=== PATIENT | male | born 1955 | race Caucasian/White ===

== ENCOUNTER → 2017-10-06 11:46 | Outpatient (CLI) | payer OTHER, BC, SELFPAY ==
--- NOTE | 2017-10-06 11:50 | NM_ITS ---
History and Indications: Hypertension, hyperlipidemia, chest pain, shortness of breath and palpitations Procedure: Patient exercised on Vijay protocol 7 minutes and 7 seconds, resting heart rate was 58 bpm resting blood pressure 161/100 ,With exercise maximum heart rate achieved was 1 48 bpm which is equal to 93% of the maximum predicted heart rate and a blood pressure was 234/110, the test was started due to shortness of breath patient denied any complained of chest pain. Patient has good exercise capacity achieved 10.1mets of workload on treadmill, the blood pressure response to exercise was hypertensive. Electrocardiogram: Resting electrocardiogram shows sinus rhythm, with exercise there is less than 1.[address] segment depression noted from the baseline EKG. The EKG portion of the exercise Myoview is negative for ischemia. Cardiac stress and resting SPECT images: Cardiac stress and resting SPECT images were obtained using technetium 99 Myoview 29.3 mCi at stress and 10.8 mCi at rest, gated SPECT further analysis of segmental wall motion and calculation of the ejection fraction also done. Cardiac stress and resting SPECT images show uniform myocardial activity without any segmental perfusion abnormality, computer derived ejection fraction is 64% with no obvious regional wall motion abnormality, right ventricle is normal size and contractility. Conclusion: 1. The EKG portion of the exercise Myoview is negative for ischemia, patient has good exercise capacity achieved 10.1mets of workload on treadmill, the blood pressure response to exercise was hypertensive. There was no exercise-induced chest discomfort. 2. No obvious scintigraphic evidence of reversible ischemia seen, computer derived ejection fraction is 64% with no obvious regional wall motion abnormality, right ventricle is normal size and contractility.
--- NOTE | 2017-10-06 12:46 | HMH.ITSHM ---
METOPROLOL ASPIRIN LOSARTAN LANSOPRAZOLE MELOXICAM BREO
== END ==
PROVIDERS: Family Provider Family Medicine; PCP Family Medicine; Visit Provider Family Medicine
DX: R07.89 Other chest pain (principal)
CPT/HCPCS: 78452; 93017; A9502

== ENCOUNTER → 2019-01-11 17:04 | Outpatient (CLI) | payer BC, SELFPAY | PROVIDERS: PCP Family Medicine; Visit Provider Family Medicine | DX: R07.89 Other chest pain (principal) | CPT/HCPCS: 93005 ==

== ENCOUNTER → 2019-01-18 11:49 | Outpatient (CLI) | payer BC, SELFPAY | PROVIDERS: PCP Family Medicine; Visit Provider Family Medicine | DX: R00.2 Palpitations (principal) | CPT/HCPCS: 93225; 93226 ==

== ENCOUNTER → 2019-01-27 07:33 | Outpatient (CLI) | payer BC, SELFPAY ==
--- NOTE | 2019-01-27 | CA_ITS ---
APPROVED REPORT Exam: Pharmacologic Technologist: rony cooper, Ht: 5 ft 6 in Wt: 190 lbs BSA: 1.96 m2 HR: 57 bpm BP: 172/92 mmHg Indications: SOB, PALPATATIONS, chest pain Medical History Medical History: HTN Medications: Metoprolol,,,,, Losartan,,,,, Lansoprasole,,,,, MeLOICAM,,,,, Allergies: oxytetracycline; Teramycin and bee stings Cardiac Risk Factors: HTN Stress Test Details Test: LEXISCAN HR Resting HR: 56 bpm Max Heart Rate (APMHR): 157 bpm Max HR Achieved: 99 bpm Target HR (85% APMHR): 133 bpm % of APMHR: 63 Recovery HR: 79 bpm BP Resting BP: 172/92 mmHg Max BP: 195/73 mmHg Recovery BP: 168.0/90.0 mmHg ECG Clinical Exercise duration: 04:02 min Highest Stage Achieved: Exercise capacity: 1.0 METs Stress ECG Conclusion No chest pain; no shortness of breath: Nausea that resolved in recovery. Occasional PVC and PAC - atrial couplets with 5 beat run of AT. Less than 1.[address] depression. Images to follow. Electronically signed by : Joel Atkinson, 02/08/2019 11:44:23
--- NOTE | 2019-01-27 07:35 | CA_ITS ---
APPROVED REPORT EXAM: Comprehensive 2D, Doppler, and color-flow Echocardiogram Taxonomy Teacher: Nuzhat Gonzalez RVT Ht: 5 ft 6 in Wt: 190lbs BSA: 1.96 BP: 158/92 mmHg Indications: Chest Pain, Murmur, Palpitations, Dyspnea, Hypertension/HDD Left Ventricle Left atrium is mildly enlarged, left ventricle is normal size, left ventricular wall thickness is upper limit of the normal, there is preserved left ventricular systolic function, visually estimated ejection fraction 55% with no regional wall motion abnormality. Diastolic parameters are within normal range. Right Ventricle Right atrium and right ventricular normal size and contractility. Aortic Valve Aortic valve is minimally thickened and fibrosed. There is no aortic stenosis aortic insufficiency Mitral Valve Mitral valve is grossly normal. There is mild mitral regurgitation. Tricuspid Valve Tricuspid valve is grossly normal, there is mild tricuspid regurgitation, tricuspid regurgitation jet velocity is inadequate for calculation of the right ventricular systolic pressure. Pulmonic Valve Grossly normal Great Vessels Aortic root is normal size Pericardium No significant pericardial effusion noted. 2D Dimensions IVSd 1.10 cm M: 0.6-1.2 LVEF (Visual) 61.80 % PWd 1.10 cm M: 0.6 - 1.2 LVDd 3.40 cm M: 4.2 - 5.9 LVDs 2.30 cm M: 2.5 - 4.0 LVOT 1.80 cm (M/F) 1.5-2.5 M-Mode Dimensions LA Diam 4.10 cm (1.9-4.0) LVDd 6.00 cm (3.5-5.7) Ao Diam 2.40 cm (2.0-3.7) LVDs 3.50 cm (3.5-5.7) AV Cusp 1.60 cm (1.5-2.6) IVSd 0.90 cm (0.6-1.1) PWd 0.90 cm (0.6-1.1) EF (Teich) 71.70% FS 41.70% EDV (Teich) 180.00 mL ESV (Teich) 50.90 mL LV Diastology E/A Ratio 1.5 MED E' 8.97 (< 7 cm/sec) E'/MED E' Ratio 8.60 (>14) LAT E' 7.60 (<10 cm/sec) E/LAT E' Ratio 10.20 (>14) Aortic Valve AoV Peak César. 98.70 (50-130 cm/s) AO Peak GR. 4.00 mmHg Mitral Valve MV E Max César. 77.50 (40-130 cm/s) MV A Velocity 51.80 (40-130 cm/s) E/A Ratio 1.50 Pulmonary Valve GA End VMAX 29.90 cm/s PA Accel Time 99.00 (>120 msec) Tricuspid Valve TR P. Velocity 220.00 cm/s Conclusion Normal left ventricular size, preserved left ventricular systolic function, visually estimated ejection fraction 55% with no regional wall motion abnormality, diastolic parameters are within normal range. Mild mitral and tricuspid regurgitation No significant pericardial effusion noted. Electronically signed by : Kwame Ballesteros, 01/27/2019 09:26:21
--- NOTE | 2019-01-27 07:35 | NM_ITS ---
APPROVED REPORT Marine Service Manager: Lexiscan Myoview study: Indication for the test: Shortness of breath, palpitations, fatigue and hypertension Procedure: Patient received a 0.4 mg of intravenous Lexiscan, resting heart rate was 57 bpm resting blood pressure 172/92, with Lexiscan maximum heart rate achieved was 82 bpm which is less than 85% of the maximum corrected heart rate in the blood pressure was 161/86. With Lexiscan patient complained of nausea. Electrocardiogram: Resting electro cardiogram showed sinus rhythm, with Lexiscan there is less than 1.[address] segment depression noted from the baseline EKG, occasional premature atrial complexes seen, the EKG portion of the Lexiscan Myoview is nondiagnostic. Cardiac stress and resting SPECT images: Cardiac stress and resting SPECT images were obtained using technetium 99 Myoview 28.0 mCi at stress and 9.8 mCi at rest. Gated SPECT with analysis of segmental wall motion and calculation of the ejection fraction also done. Cardiac stress and resting SPECT images show uniform myocardial activity without segmental perfusion abnormality, computer derived ejection fraction is over 65% with no regional wall motion abnormality, right ventricle is normal size and contractility. Conclusions: 1. The EKG portion of the Lexiscan Myoview is nondiagnostic. 2. No scintigraphic evidence of reversible ischemia seen, computer derived ejection fraction is 65% with no regional wall motion abnormality, right ventricle is normal size and contractility. 3. Normal Lexiscan Myoview study. Conclusion Electronically signed by : Kwame Ballesteros, 01/27/2019 14:55:41
--- NOTE | 2019-01-27 11:17 | HMH.ITSHM ---
Current Home Medications as stated by this patient Jesus Randall or [facility] representatives. []losartan metoprolol meloxicam lansoprazole
== END ==
PROVIDERS: PCP Family Medicine; Visit Provider Internal Medicine
DX: R00.2 Palpitations (principal); R06.09 Other forms of dyspnea; R42 Dizziness and giddiness; I10 Essential (primary) hypertension; I49.1 Atrial premature depolarization
CPT/HCPCS: 78452; 93017; 93306; A9502; J2785

== ENCOUNTER → 2019-07-19 16:27 | Outpatient (CLI) | payer BC, SELFPAY ==
--- NOTE | 2019-07-19 16:41 | ECG_ITS ---
APPROVED REPORT Exam: Resting ECG HR:58 bpm ECG Measurements Heart Rate 58 AXES CA 146 P 3 QRSd 84 QRS -4 QT 408 T 1 QTc 400 <Conclusion> Sinus bradycardia with premature atrial complexes with aberrant conduction Otherwise normal ECG Electronically signed by : Kamari Anne, 07/20/2019 15:29:41
== END ==
PROVIDERS: PCP Family Medicine; Visit Provider Family Medicine
DX: I49.9 Cardiac arrhythmia, unspecified (principal)
CPT/HCPCS: 93005

== ENCOUNTER → 2019-08-11 14:58 | Outpatient (CLI) | payer SELFPAY ==
--- NOTE | 2019-08-11 14:59 | CT_ITS ---
PROCEDURE: CT HEART W CALCIUM SCORE CLINICAL HISTORY: chest pain COMPARISON: No exams were available for comparison TECHNIQUE: Axial images obtained with sagittal and coronal reformats. All CT scans at the facility use one or more dose reduction, viz: automated exposure control, ma/kV adjustment per patient size (including targeted exams where dose is matched to indication, i.e. head), or iterative reconstruction technique. FINDINGS: Coronary artery calcium score is 399 indicating moderate plaque burden with high cardiovascular disease risk IMPRESSION: Moderate plaque burden with high cardiovascular disease risk Dictated by: Dennis Murray MD 08/11/2019 16:43 Electronically signed by Dennis Murray MD in [place] 08/11/2019 16:43
== END ==
PROVIDERS: PCP Family Medicine; Visit Provider Internal Medicine Cardiovascular Disease
DX: Z13.6 Encounter for screening for cardiovascular disorders (principal); I10 Essential (primary) hypertension; I49.1 Atrial premature depolarization; R00.2 Palpitations; R06.09 Other forms of dyspnea; R07.9 Chest pain, unspecified; R42 Dizziness and giddiness
CPT/HCPCS: 75571

== ENCOUNTER → 2019-08-25 13:24 | Outpatient (CLI) | payer BC, SELFPAY | PROVIDERS: PCP Family Medicine; Visit Provider Internal Medicine Cardiovascular Disease | DX: G47.33 Obstructive sleep apnea (adult) (pediatric) (principal); R06.83 Snoring; R40.0 Somnolence | CPT/HCPCS: G0399 ==

== ENCOUNTER 2020-10-18 08:47 | Day surgery (SDC) | payer BC, SELFPAY ==
[2020-10-18] VITALS (12 sets, daily range): BP systolic 104–151; BP diastolic 64–103; PULSE 52–63; RESP 13–16; TEMP 36.8; O2SAT 95–98; BMI 30.9
--- NOTE | 2020-10-18 | IR_ITS ---
APPROVED REPORT Patient Location: Outpatient Wafer Fabrication Operator: LESLIE Back RT (R) PROCEDURES Left heart catheterization Left ventriculogram Selective coronary angiogram INDICATION Calcium score 399, Angina pectoris, Abnormal stress test Informed consent was obtained prior to the procedure. COMPLICATIONS NONE Estimated Blood Loss: LESS THAN 10 ML TECHNIQUE One percent lidocaine used to anesthetize the right anterior aspect of the wrist. The right radial artery was accessed via the Seldinger technique. A 6 Bengali sheath was placed in the right radial artery. 2.5 mg of verapamil, 800 mcg of nitroglycerin, 1mg Lidocaine and 5000 U Heparin were given through the arterial sheath. The trap catheter and a 6 Bengali JL 3 guide catheter were also used to perform left heart catheterization, left ventriculogram and selective coronary angiogram. At the end of the procedure the sheath was removed good hemostasis was achieved using Traclet band, patient was transferred to the postop holding area in stable condition. ANGIOGRAPHIC RESULTS The left main artery Has mild 10% stenosis The left anterior descending artery Has an ostial and proximal mild vascular ectatic area with no overt stenosis however the mid LAD has diffuse 30% calcified stenoses. The LAD is a large-caliber vessel and wraps the apex The circumflex artery Has a large caliber large ramus intermedius which originates off the left main artery which has mild vascular ectasia in the proximal segment and a mid vessel calcified 30% stenosis. The circumflex artery itself is moderate in size and has mild 20% calcified diffuse disease The right coronary artery Is a large-caliber vessel with an ostial 20% stenoses with proximal mid vessel and distal mild to moderate diffuse vascular ectasia with no overt stenosis greater than 10 to 20% The DELANEY ventriculogram reveals Normal 65% The left ventricular end-diastolic pressure 20 mmHg IMPRESSION Coronary artery disease as described above most notable for mild to moderate vascular ectasia producing a mild degree of endothelial dysfunction Diffuse mild calcification with mild coronary artery disease being present Normal ejection fraction Mildly elevated LVEDP PLAN 1. Continue medical management 2. Standard risk factor modification 3. Treatment of underlying endothelial dysfunction which is likely the etiology for patient's angina Electronically signed by : Joel Atkinson, 10/18/2020 11:27:11
[2020-10-18 09:25] LABS: Basophils % 0.4 % (0.1-2.0); Eosinophils # 0.1 K/mm3 (0.0-0.4); Eosinophils % 2.6 % (0.1-12.0); Hematocrit 41.3 % (42.0-52.0); Hemoglobin 13.8 g/dL (14.1-18.0); Lymphocytes # 1.4 K/mm3 (0.7-4.5); Mean Corpuscular HGB Conc 33.5 g/dL (31.8-35.4); Mean Corpuscular Volume 86.7 fl (80-94); Mean Platelet Volume 8.9 fl (7.4-10.4); Monocytes # 0.3 K/mm3 (0.1-1.0); Neutrophils # 3.6 K/mm3 (1.8-7.8); Neutrophils % 65.9 % (37.0-80.0); Platelet Count 128 K/mm3 (142-424); Red Blood Count 4.76 M/mm3 (4.60-6.20); Red Cell Distribution Width 14.2 % (11.5-17.5); White Blood Count 5.4 K/mm3 (4.8-10.8)
[2020-10-18 09:32] LABS: Chloride 109 mmol/L (98-107); Potassium 4.4 mmoL/L (3.5-5.1); Sodium 139 mmol/L (136-145)
[2020-10-18 09:35] LABS: Anion Gap 11.4 mEq/L (5-15); Blood Urea Nitrogen 15 mg/dl (9-20); Carbon Dioxide 23 mmol/L (22.0-30.0); Creatinine Clearance Estimated 84 mL/min (50-200); Estimated Glomerular Filt Rate 67 ml/min (>60); GFR (African American) 82 ML/MIN (>60)
[2020-10-18 09:36] LABS: Calcium 9.1 mg/dl (8.4-10.2); Glucose 111 mg/dl (74-100)
[2020-10-18 09:55] LABS: Coronavirus 19 IgG Antibody Negative (Negative); Coronavirus 19 IgM Antibody Negative (Negative)
== END 2020-10-18 14:08 | disposition home or self-care (01) ==
LOC: CATHLAB 08:49
PROVIDERS: PCP Family Medicine; Visit Provider Internal Medicine
DX: I25.118 Atherosclerotic heart disease of native coronary artery with other forms of angina pectoris (principal); I10 Essential (primary) hypertension; Z88.1 Allergy status to other antibiotic agents; Z79.899 Other long term (current) drug therapy
CPT/HCPCS: 80048; 85025; 86328; 93458; 99152; C1725; C1769; J1644; Q9967

== ENCOUNTER → 2020-11-13 14:48 | Outpatient (CLI) | payer MEDICARE, BC, SELFPAY ==
[2020-11-13 16:29] LABS: Anion Gap 11.5 mEq/L (5-15); Blood Urea Nitrogen 24 mg/dl (9-20); Calcium 8.9 mg/dl (8.4-10.2); Carbon Dioxide 22 mmol/L (22.0-30.0); Chloride 108 mmol/L (98-107); Estimated Glomerular Filt Rate 61 ml/min (>60); GFR (African American) 74 ML/MIN (>60); Glucose 126 mg/dl (74-100); Potassium 4.5 mmoL/L (3.5-5.1); Sodium 137 mmol/L (136-145)
== END ==
PROVIDERS: Visit Provider Internal Medicine Cardiovascular Disease
DX: I25.10 Atherosclerotic heart disease of native coronary artery without angina pectoris (principal); R06.00 Dyspnea, unspecified; I10 Essential (primary) hypertension; I49.1 Atrial premature depolarization; G47.33 Obstructive sleep apnea (adult) (pediatric); R06.83 Snoring; R40.0 Somnolence
CPT/HCPCS: 36415; 80048

== ENCOUNTER → 2021-03-10 11:12 | Outpatient (CLI) | payer MEDICARE, BC, SELFPAY | PROVIDERS: Visit Provider Surgery | DX: Z20.822 Contact with and (suspected) exposure to COVID-19 (principal); U07.1 COVID-19 | CPT/HCPCS: C9803; U0003; U0005 ==

== ENCOUNTER → 2022-11-13 14:10 | Outpatient (CLI) | payer MEDICARE, SELFPAY ==
--- NOTE | 2022-11-13 14:20 | XR_ITS ---
FINAL REPORT TECHNIQUE: Three views left elbow CLINICAL HISTORY: FELL OFF OF LADDER, LANDED ON LEFT HAND, PAIN & SWELLING IN LEFT HAND/WRIST/ELBOW COMPARISON: None FINDINGS: Three views of the left elbow reveal a joint effusion and a mildly displaced radial head fracture. The fracture appears to extend into the intra-articular surface. No significant soft tissue abnormality is noted. IMPRESSION: Mildly displaced radial head fracture, intra-articular, with an associated joint effusion. Reviewed, Interpreted and Dictated by Randy Sanchez MD Transcribed by Deedee Pendleton Authenticated and [facility]
--- NOTE | 2022-11-13 14:21 | XR_ITS ---
FINAL REPORT CLINICAL HISTORY: FELL OFF OF LADDER, LANDED ON LEFT HAND, PAIN & SWELLING IN LEFT HAND/WRIST/ELBOW COMPARISON: None FINDINGS: LEFT WRIST Three views of the left wrist reveal dorsal fracture fragments which originate from the region of the dorsal aspect of the triquetrum, probably avulsion fractures. Associated soft tissue swelling is present.. The visualized joint spaces are normally aligned. IMPRESSION: Avulsion fracture dorsal aspect of the triquetrum with associated soft tissue swelling. Reviewed, Interpreted and Dictated by Randy Sanchez MD Transcribed by Deedee Pendleton Authenticated and [facility]
== END ==
PROVIDERS: PCP Family Medicine; Visit Provider Family Medicine
DX: M25.522 Pain in left elbow (principal); S59.902A Unspecified injury of left elbow, initial encounter
CPT/HCPCS: 73080; 73110

== ENCOUNTER → 2022-12-29 10:25 | Outpatient (CLI) | payer MEDICARE, SELFPAY ==
--- NOTE | 2022-12-29 10:34 | XR_ITS ---
FINAL REPORT CLINICAL HISTORY: Lt elbow pain COMPARISON: November 13, 2022 FINDINGS: LEFT ELBOW 3 views were obtained. A radial head fracture is again seen and slightly depressed. There continues to be a joint effusion. No new bony abnormality is identified. IMPRESSION: Redemonstration of radial head fracture and joint effusion. Reviewed, Interpreted and Dictated by Angelita Cagle MD Transcribed by Michael Pittman Authenticated and [facility]
== END ==
PROVIDERS: PCP Family Medicine; Visit Provider Orthopaedic Surgery
DX: S52.132A Displaced fracture of neck of left radius, initial encounter for closed fracture (principal)
CPT/HCPCS: 73080

== ENCOUNTER → 2023-01-01 11:48 | Outpatient (CLI) | payer MEDICARE, SELFPAY ==
--- NOTE | 2023-01-01 | CA_ITS ---
APPROVED REPORT Exam: Exercise Treadmill Technologist: Melonie Butler, Ht: 5 ft 6 in Wt: 190 lbs BSA: 1.96 m2 HR: 57 bpm BP: 146/93 mmHg Rhythm: SINUS NEMESIO, PACS, CANNOT R/O OLD INFERIOR MO Indications: CP, SOA Medical History Medical History: HTN, Hyperlipidemia Medications: Asa,,,,, Losartan,,,,, Atorvastatin,,,,, HCTZ,,,,, Carvedilol,,,,, Citalopram,,,,, Lansoprazole,,,,, OSTEO Bi Flex,,,,, Allergies: OXYTETRACYCLINE, TERAMYCIN, BEE STINGS Cardiac Risk Factors: HTN, Hyperlipidemia Stress Test Details Test: Vijay HR Resting HR: 61 bpm Max Heart Rate (APMHR): 153 bpm Max HR Achieved: 144 bpm Target HR (85% APMHR): 130 bpm % of APMHR: 94 Recovery HR: 85 bpm HR response to stress: Normal HR response to stress BP Resting BP: 146.0/93 mmHg Max BP: 206/104 mmHg Recovery BP: 146.0/91.0 mmHg BP response to stress: Abnormal hypertensive response to stress. ECG Resting ECG: SINUS BRADYCARDIA, PACS, CANNOT R/O OLD INFERIOR MO Stress ECG: NO CHANGE Arrhythmia: PACs, PVCs Recovery ECG: NO CHANGE Recovery Arrhythmia: PACs, PVCs Clinical Exercise duration: 07:16 min Highest Stage Achieved: Exercise capacity: 10.1 METs Overall Exercise Capacity for Age: Average Stress ECG Conclusion PT WALKED 7:16 ON VIJAY PROTOCOL, ACHIEVING A TOTAL OF 10.1 METS. SHE HAS AN AVERAGE EXERCISE CAPACITY COMPARED TO AGE AND SEX MATCHED PEERS. SHE HAS A NORMAL HR, BUT EXAGGERATED BP, RESPONSE TO EXERCISE. MAX HR: 142 % OF PM: 93% MAX BP: 206/104 METS: 10.1 TEST STOPPED DUE TO: SOA NO CP OCC PVC OCC PAC NORMAL ST RESPONSE TO EXERCISE CONCLUSION AVERAGE EXERCISE CAPACITY EXAGGERATED BP RESPONSE TO EXERCISE NO EVIDENCE OF ISCHEMIA ON ECG STRESS TEST MYOVIEW IMAGES REPORTED SEPRARETELY Test Summary REST . . . . . . . Standing REST 05:48 0.0 0.0 61 . 146/ 93 . . Stage 1 01:00 10.0 1.7 85 . . . . Stage 1 02:00 10.0 1.7 91 . . . . Stage 1 03:00 10.0 1.7 93 . 148/ 90 . . Stage 2 01:00 12.0 2.5 106 . . . . Stage 2 02:00 12.0 2.5 115 . . . . Stage 2 03:00 12.0 2.5 123 . 190/ 92 . . Stage 3 01:00 14.0 3.4 136 . . . . Stage 3 01:16 14.0 3.4 140 . . . Stop exercise at 07:16 RECOVERY 01:00 0.0 0.0 122 . . . . RECOVERY 02:00 0.0 0.0 99 . 206/104 . . RECOVERY 03:00 0.0 0.0 91 . 188/ 93 . . RECOVERY 04:00 0.0 0.0 85 . 188/ 93 . . RECOVERY 05:00 0.0 0.0 86 . 160/ 87 . . RECOVERY 06:00 0.0 0.0 83 . 160/ 87 . . RECOVERY 06:48 0.0 0.0 84 . 146/ 91 . . Electronically signed by : Lorelei Peterson, 01/03/2023 15:47:13
--- NOTE | 2023-01-01 11:53 | NM_ITS ---
APPROVED REPORT Exam: Nuclear Stress Test Indication: chest pain..soa..fatigue Patient Location: Outpatient Stress Tech: Melonie Butler Ht: 5 ft 6 in Wt: 190 lbs HR: 61 bpm BP: 146/93 mmHg BSA: 1.96 m2 Rhythm: NSR TID: 0.96 BMI: 30.6 History: chest pain..soa..fatigue Procedure: Patient exercised on Vijay protocol 7:16 minutes and sec, resting heart rate 61 bpm, resting blood pressure 146/93 mmHg, with exercise maximum heart rate achived was 144 bpm which is 94 % of the maximum predicted heart rate and blood pressure was 206/104 mmHg. Test was stopped due to soa. Patient denied any complaint of chest pain. Patient has average exercise capacity, achieved 10.1 METs of workload on treadmill, the blood pressure response to exercise was exaggerated. Cardiac Stress and Resting SPECT Images: Cardiac Stress and Resting SPECT images were obtained using technetium 99m Myoview 31.1 mCi stress and 10.55 mCi at rest. Resting and stress imaging in both supine and prone positions demonstrate a medium-sized, mild, fixed perfusion defect in the basal inferior LV wall, as well as a small-sized, moderate, reversible perfusion defect in the basal lateral LV wall. Gated imaging demosntrates a normal global and regional LV systolic function. LVEF is calculated at 54%. Conclusion: Medium-sized, mild, fixed perfusion defect in the basal inferior LV wall, as well as a small-sized, moderate, reversible perfusion defect in the basal lateral LV wall. Gated imaging demosntrates a normal global and regional LV systolic function. LVEF is calculated at 54%. Electronically signed by : Lorelei Peterson, 01/03/2023 15:56:27
== END ==
PROVIDERS: PCP Family Medicine; Visit Provider Family Medicine
DX: R07.9 Chest pain, unspecified (principal); R06.02 Shortness of breath
CPT/HCPCS: 78452; 93017; A9502

== ENCOUNTER → 2023-01-14 12:54 | Outpatient (CLI) | payer MEDICARE, SELFPAY ==
--- NOTE | 2023-01-14 12:58 | CA_ITS ---
APPROVED REPORT EXAM: Comprehensive 2D, Doppler, and color-flow Echocardiogram Operations Clerk: Livia Jorge CRT Ht: 5 ft 6 in Wt: 190lbs BSA: 1.96 BP: 138/87 mmHg Indications: Chest Pain, Shortness of Breath, CAD, Hypertension/HDD, ABN GXT, STACI 2D Dimensions LVOT 1.86 cm (M/F) 1.5-2.5 LA Volume 40.30 mL LA Volume Index 20.20 mL/m2 (M/F) 16-34 M-Mode Dimensions RVDd 2.58 cm (0.9-2.6) LA Diam 4.41 cm (1.9-4.0) LVDd 4.58 cm (3.5-5.7) Ao Diam 3.44 cm (2.0-3.7) LVDs 2.79 cm (3.5-5.7) IVSd 0.97 cm (0.6-1.1) PWd 0.93 cm (0.6-1.1) EF (Teich) 69.60% FS 39.10% EDV (Teich) 96.30 mL TAPSE 1.45 (<1.7) ESV (Teich) 29.30 mL LV Diastology E Decel Time 170.00 (160-240 msec) E/A Ratio 1.51 MED E' 6.50 (< 7 cm/sec) MED A' 5.20 cm/s E'/MED E' Ratio 12.62 (>14) LAT E' 10.50 (<10 cm/sec) LAT A' 5.70 cm/s E/LAT E' Ratio 7.81 (>14) Aortic Valve AO Peak GR. 9.10 mmHg Mitral Valve MV A Velocity 54.00 (40-130 cm/s) E/A Ratio 1.51 MV Decel. Time 170.00 (160-240 ms) Pulmonary Valve PV Peak Velocity 239.00 (50-150 cm/s) Tricuspid Valve TR P. Velocity 277.00 cm/s RAP Estimate 10.00 mmHg RVSP 40.60 mmHg Left Ventricle The left ventricle is normal size. The left ventricular systolic function is normal. The left ventricular ejection fraction is within the normal range. There is normal left ventricular wall thickness. There is normal LV segmental wall motion. The diastolic function is indeterminate. LVEF is 60%. Right Ventricle The right ventricle moderately dilated. The right ventricular systolic function is normal. Atria Left atrium is mildly dilated. The right atrium size is normal. Aortic Valve The aortic valve opens well. There is no aortic valvular stenosis. No aortic regurgitation is present. Mitral Valve The mitral valve is normal in structure. No evidence of mitral valve stenosis. Mild mitral regurgitation. Tricuspid Valve The tricuspid valve leaflets are thin and pliable. Trace tricuspid regurgitation. RVSP is normal. Pulmonic Valve The pulmonary valve is normal in structure. Trace pulmonic regurgitation. Great Vessels The aortic root is normal in size. IVC is normal in size and collapses >50% with inspiration. Pericardium There is no pericardial effusion. Other Information Study Quality: Adequate Conclusion Normal biventricular systolic function. Moderately dilated RV No significant valvular disease. Electronically signed by : Lorelei Peterson, 01/16/2023 13:22:32
== END ==
PROVIDERS: PCP Family Medicine; Visit Provider Family Medicine
DX: R06.02 Shortness of breath (principal)
CPT/HCPCS: 93306

== ENCOUNTER 2023-01-18 08:21 | Day surgery (SDC) | payer MEDICARE, SELFPAY ==
[2023-01-18] VITALS (12 sets, daily range): BP systolic 102–146; BP diastolic 64–92; PULSE 54–68; RESP 14–21; O2SAT 95–100; BMI 30.7
--- NOTE | 2023-01-18 07:12 | IR_ITS ---
APPROVED REPORT Patient Location: Outpatient Customer Success Director: LESLIE Lezama RT (R) PROCEDURES Left heart catheterization Left ventriculogram Selective coronary angiogram Bilateral selective renal angiography Informed consent was obtained prior to the procedure. COMPLICATIONS None Estimated Blood Loss: Less than 10 mls TECHNIQUE One percent lidocaine used to anesthetize the right anterior aspect of the wrist. The right radial artery was accessed via the Seldinger technique. A 6 Kazakh sheath was placed in the right radial artery. 150 mg magnesium sulfate, 800 mcg of nitroglycerin, 1mg Lidocaine and 5000 U Heparin were given through the arterial sheath. The papa catheter was also used to perform left heart catheterization, left ventriculogram and selective coronary angiogram. 110 cm Poppa catheter was used to perform bilateral selective renal angiography. At the end of the procedure the sheath was removed good hemostasis was achieved using Traclet band, patient was transferred to the postop holding area in stable condition. ANGIOGRAPHIC RESULTS The left main artery Long tubular ostial proximal 10 to 20% stenosis The left anterior descending artery Has proximal 20% luminal irregularities with mid vessel 20 to 30% luminal regularities The circumflex artery Nondominant with diffuse 20 to 30% stenoses The right coronary artery Dominant with diffuse moderate vascular ectasias. There is a mid vessel 50 to 60% stenosis and a 70 to 80% stenosis in the ostial proximal segment of a 2 mm posterior descending artery The DELANEY ventriculogram reveals Small hyperdynamic at 75% The left ventricular end-diastolic pressure Severely elevated at 40 mmHg Left renal artery singular and has an ostial 10 to 20% stenosis Right renal artery has a dual arterial supply with the superior branch supplying 60% of the kidney having an ostial 40 to 50% stenosis with a 20 mm Funk stenotic gradient with a 6 Kazakh catheter on pullback while the inferior branch is patent IMPRESSION Moderate coronary artery disease as described above Moderate vascular ectasia accompanied by LUNA II flow throughout the right coronary artery likely secondary to severe diastolic dysfunction Small left ventricle with hyperdynamic function and severely elevated LVEDP all consistent with diastolic dysfunction Moderate right renal artery stenosis as described above Mild left renal artery stenosis as described above PLAN 1. Risk factor modification for ischemic heart disease 2. Treatment of diastolic dysfunction which is the likely culprit for patient's associated symptoms 3. Recommend sleep study 4. Avoidance of tobacco prior Electronically signed by : Joel Atkinson MD 01/18/2023 10:27:08
[2023-01-18 08:53] LABS: Basophils % 0.6 % (0.1-2.0); Eosinophils # 0.2 K/mm3 (0.0-0.4); Eosinophils % 4.3 % (0.1-12.0); Hematocrit 41.1 % (42.0-52.0); Hemoglobin 13.6 g/dL (14.1-18.0); Lymphocytes # 1.8 K/mm3 (0.7-4.5); Lymphocytes % 34.7 % (10-50); Mean Corpuscular Hemoglobin 28.4 pg (27.0-31.2); Monocytes # 0.4 K/mm3 (0.1-1.0); Neutrophils # 2.8 K/mm3 (1.8-7.8); Neutrophils % 53.5 % (37.0-80.0); Platelet Count 127 K/mm3 (142-424); Red Blood Count 4.78 M/mm3 (4.60-6.20); Red Cell Distribution Width 14.1 % (11.5-17.5); White Blood Count 5.1 K/mm3 (4.8-10.8)
[2023-01-18 09:24] LABS: Anion Gap 11.2 mEq/L (5-15); Blood Urea Nitrogen 16 mg/dl (9-20); Calcium 8.8 mg/dl (8.4-10.2); Carbon Dioxide 24 mmol/L (22.0-30.0); Chloride 111 mmol/L (98-107); Creatinine Clearance Estimated 67 mL/min (50-200); Estimated Glomerular Filt Rate 55 ml/min (>60); GFR (African American) 67 ML/MIN (>60); Glucose 108 mg/dl (74-100); Potassium 4.2 mmoL/L (3.5-5.1); Sodium 142 mmol/L (136-145)
== END 2023-01-18 13:10 | disposition home or self-care (01) ==
PROVIDERS: PCP Family Medicine; Visit Provider Internal Medicine
DX: G47.33 Obstructive sleep apnea (adult) (pediatric) (principal); I10 Essential (primary) hypertension; R94.39 Abnormal result of other cardiovascular function study; I25.118 Atherosclerotic heart disease of native coronary artery with other forms of angina pectoris; Z79.899 Other long term (current) drug therapy; I70.1 Atherosclerosis of renal artery
CPT/HCPCS: 36252; 80048; 85025; 93458; 99152; 99153; C1725; C1769; J1644; Q9967

== ENCOUNTER → 2023-02-18 14:59 | Outpatient (CLI) | payer MEDICARE, SELFPAY ==
[2023-02-18 15:23] LABS: Basophils % 0.3 % (0.1-2.0); Eosinophils # 0.2 K/mm3 (0.0-0.4); Eosinophils % 2.5 % (0.1-12.0); Hematocrit 41.5 % (42.0-52.0); Lymphocytes # 1.5 K/mm3 (0.7-4.5); Lymphocytes % 23.6 % (10-50); Mean Corpuscular HGB Conc 33.8 g/dL (31.8-35.4); Mean Corpuscular Volume 85.8 fl (80-94); Monocytes # 0.3 K/mm3 (0.1-1.0); Monocytes % 5.3 % (1.7-9.3); Neutrophils # 4.3 K/mm3 (1.8-7.8); Neutrophils % 68.4 % (37.0-80.0); Platelet Count 139 K/mm3 (142-424); Red Blood Count 4.84 M/mm3 (4.60-6.20); Red Cell Distribution Width 14.4 % (11.5-17.5); White Blood Count 6.2 K/mm3 (4.8-10.8)
[2023-02-18 15:50] LABS: Alanine Aminotransferase 36 U/L (12-78); Albumin Level 4.2 g/dl (3.5-5.0); Alkaline Phosphatase 94 U/L (38-126); Anion Gap 15.3 mEq/L (5-15); Aspartate Amino Transferase 33 U/L (17-59); Bilirubin,Direct 0.1 mg/dl (0.0-0.4); Bilirubin,Indirect 0.4 mg/dL (0.0-0.9); Bilirubin,Total 0.5 mg/dl (0.2-1.3); Bilirubin,Unconjugated 0.4 mg/dL (0.0-1.1); Blood Urea Nitrogen 21 mg/dl (9-20); Calcium 9.2 mg/dl (8.4-10.2); Carbon Dioxide 21 mmol/L (22.0-30.0); Chloride 108 mmol/L (98-107); Chol/HDL Ratio 6.9 (1-3.5); Cholesterol 166 mg/dl (140-200); Estimated Glomerular Filt Rate 55 ml/min (>60); GFR (African American) 67 ML/MIN (>60); Glucose 127 mg/dl (74-100); HDL Cholesterol 24 mg/dl (40-60); Magnesium 1.6 mg/dl (1.6-2.3); Potassium 4.3 mmoL/L (3.5-5.1); Sodium 140 mmol/L (136-145); Total Protein,Serum 7.1 g/dl (6.3-8.2); Triglycerides 241 mg/dl (30-150); VLDL Cholesterol 48 mg/dL (0-40)
[2023-02-18 15:58] LABS: NT Pro Brain Natriuretic Pep. 107 pg/mL (0-125)
[2023-02-18 16:01] LABS: Direct LDL Cholesterol 100.24 mg/dL (100-129)
[2023-02-18 16:05] LABS: Free T4 (Free Thyroxine) 1.12 ng/dl (0.78-2.19)
[2023-02-18 16:20] LABS: Thyroid Stimulating Hormone 1.23 uIU/mL (0.465-4.68)
== END ==
PROVIDERS: PCP Family Medicine; Visit Provider Physician Assistant
DX: G47.33 Obstructive sleep apnea (adult) (pediatric) (principal); I10 Essential (primary) hypertension; I25.10 Atherosclerotic heart disease of native coronary artery without angina pectoris; I70.1 Atherosclerosis of renal artery; I73.9 Peripheral vascular disease, unspecified; R06.00 Dyspnea, unspecified; R06.01 Orthopnea
CPT/HCPCS: 36415; 80048; 80061; 80076; 83735; 83880; 84439; 84443; 85025

== ENCOUNTER → 2023-05-10 12:57 | Outpatient (CLI) | payer MEDICARE, SELFPAY ==
[2023-05-10 14:14] LABS: Basophils % 0.3 % (0.1-2.0); Eosinophils # 0.1 K/mm3 (0.0-0.4); Eosinophils % 1.6 % (0.1-12.0); Hematocrit 40.3 % (42.0-52.0); Hemoglobin 13.4 g/dL (14.1-18.0); Lymphocytes # 1.4 K/mm3 (0.7-4.5); Lymphocytes % 20.7 % (10-50); Mean Corpuscular HGB Conc 33.3 g/dL (31.8-35.4); Mean Corpuscular Hemoglobin 30.2 pg (27.0-31.2); Mean Corpuscular Volume 90.6 fl (80-94); Mean Platelet Volume 8.1 fl (7.4-10.4); Monocytes # 0.5 K/mm3 (0.1-1.0); Monocytes % 7.1 % (1.7-9.3); Neutrophils # 4.8 K/mm3 (1.8-7.8); Neutrophils % 70.3 % (37.0-80.0); Platelet Count 116 K/mm3 (142-424); Red Blood Count 4.45 M/mm3 (4.60-6.20); Red Cell Distribution Width 14.1 % (11.5-17.5); White Blood Count 6.9 K/mm3 (4.8-10.8)
[2023-05-17 04:08] LABS: D001-IgE D pteronyssinus <0.10 kU/L (Class 0); D002-IgE D farinae <0.10 kU/L (Class 0); E001-IgE Cat Dander <0.10 kU/L (Class 0); E005-IgE Dog Dander <0.10 kU/L (Class 0); E072-IgE Mouse Urine <0.10 kU/L (Class 0); G002-IgE Bermuda Grass <0.10 kU/L (Class 0); G006-IgE Timothy Grass <0.10 kU/L (Class 0); I006-IgE Cockroach, German <0.10 kU/L (Class 0); Immunoglobulin E, Total 294 IU/mL (6-495); M001-IgE Penicillium chrysogen <0.10 kU/L (Class 0); M002-IgE Cladosporium herbarum <0.10 kU/L (Class 0); M003-IgE Aspergillus fumigatus <0.10 kU/L (Class 0); M006-IgE Alternaria alternata <0.10 kU/L (Class 0); T001-IgE Maple/Box Elder <0.10 kU/L (Class 0); T003-IgE Common Silver Birch <0.10 kU/L (Class 0); T006-IgE Cedar, Mountain <0.10 kU/L (Class 0); T007-IgE Oak, White <0.10 kU/L (Class 0); T008-IgE Elm, American <0.10 kU/L (Class 0); T010-IgE Walnut <0.10 kU/L (Class 0); T011-IgE Maple Leaf Sycamore <0.10 kU/L (Class 0); T014-IgE Cottonwood <0.10 kU/L (Class 0); T015-IgE Ash, White <0.10 kU/L (Class 0); T022-IgE Pecan, Hickory <0.10 kU/L (Class 0); T070-IgE White Mulberry <0.10 kU/L (Class 0); W001-IgE Ragweed, Short <0.10 kU/L (Class 0); W011-IgE Thistle, Russian <0.10 kU/L (Class 0); W014-IgE Pigweed, Common <0.10 kU/L (Class 0); W018-IgE Sheep Sorrel <0.10 kU/L (Class 0)
== END ==
PROVIDERS: PCP Family Medicine; Visit Provider Internal Medicine Pulmonary Disease
DX: J45.30 Mild persistent asthma, uncomplicated (principal)
CPT/HCPCS: 36415; 82785; 85025; 86003

== ENCOUNTER → 2023-05-24 13:00 | Outpatient (CLI) | payer MEDICARE, SELFPAY ==
--- NOTE | 2023-05-24 13:47 | PC.NURSE ---
PFT and 6 Minute Walk Test completed without incident. Albuterol 0.083% given via HHN, per written protocol, Pt tolerated tx well.
== END ==
PROVIDERS: PCP Family Medicine; Visit Provider Internal Medicine Pulmonary Disease
DX: R06.09 Other forms of dyspnea (principal)
CPT/HCPCS: 94060; 94618; 94726; 94729

== ENCOUNTER 2024-02-29 12:07 | Emergency (ER) | payer MEDICARE, SELFPAY ==
[2024-02-29] VITALS (10 sets, daily range): BP systolic 134–161; BP diastolic 80–104; PULSE 50–59; RESP 16–18; TEMP 36.6–36.8; O2SAT 96–99; BMI 29.7
--- NOTE | 2024-02-29 12:10 | ECG_ITS ---
APPROVED REPORT Exam: Resting ECG HR:62 bpm ECG Measurements Heart Rate 62 AXES RI 162 P 17 QRSd 91 QRS 5 QT 381 T 30 QTc 386 Conclusion Sinus rhythm PACs Electronically signed by : SAGRARIO JOSEPH, 03/01/2024 07:14:06
--- NOTE | 2024-02-29 12:12 | PC.NURSE ---
pt to CT for stroke protocol
--- NOTE | 2024-02-29 12:19 | CT_ITS ---
FINAL REPORT TECHNIQUE: NASCET technique utilized for stenosis evaluation. This study was performed with techniques to keep radiation doses as low as reasonably achievable (ALARA). Individualized dose reduction techniques using automated exposure control or adjustment of mA and/or kV according to the patient's size were employed. CLINICAL HISTORY: possible stroke FINDINGS: RIGHT CAROTID: No significant stenosis is seen of the cervical common or internal carotid artery. LEFT CAROTID: No significant stenosis seen of the cervical common or internal carotid artery. VERTEBRALS: The vertebrals are patent. No significant stenosis is present. IMPRESSION: No significant arterial abnormality. Reviewed, Interpreted and Dictated by Randy Sanchez MD Transcribed by Kristen Longo Authenticated and [facility]
--- NOTE | 2024-02-29 12:19 | CT_ITS ---
PROCEDURE INFORMATION: Exam: CT Head Without Contrast Exam date and time: 02/29/2024 12:16 PM Age: 68 years old Clinical indication: Stroke-like symptoms; Altered mental status/memory loss; Additional info: Possible stroke TECHNIQUE: Imaging protocol: Computed tomography of the head without contrast. Radiation optimization: All CT scans at this facility use at least one of these dose optimization techniques: automated exposure control; mA and/or kV adjustment per patient size (includes targeted exams where dose is matched to clinical indication); or iterative reconstruction. Other technique: STROKE PROTOCOL was implemented. COMPARISON: CT HEAD/BRAIN WO CON 02/29/2024 12:16 PM FINDINGS: Brain: Diffuse cerebral atrophy and white matter microangiopathic chronic ischemia in both hemispheres. No CT evidence of acute infarct, hemorrhage, mass or mass effect. Cerebral ventricles: No ventriculomegaly. Paranasal sinuses: Visualized sinuses are unremarkable. No fluid levels. Mastoid air cells: Visualized mastoid air cells are well aerated. Bones: Unremarkable. No acute fracture. Soft tissues: Unremarkable. IMPRESSION: Mild senescent brain changes but no CT evidence of acute brain injury. ASSESSMENT: ASPECTS ([place] Stroke Program Early CT Score) is 10.
--- NOTE | 2024-02-29 12:19 | CT_ITS ---
FINAL REPORT TECHNIQUE: thin section axial CT with and without IV contrast supplemented with multiplanar 3-D reconstruction of the head. This study was performed with techniques to keep radiation doses as low as reasonably achievable, (ALARA)individualized dose reduction techniques using automated exposure control or adjustment of mA and/or kV according to the patient's size were employed. CLINICAL HISTORY: possible stroke ams FINDINGS: The cranial circulation is unremarkable. There is no significant stenosis, aneurysm or occlusion. There is abnormal sclerosis of the inferior right mastoid air cells consistent with mastoiditis. IMPRESSION: No evidence of aneurysm or major branch occlusion. Right mastoiditis. Reviewed, Interpreted and Dictated by Randy Sanchez MD Transcribed by Kristen Longo Authenticated and . [facility]
--- NOTE | 2024-02-29 12:20 | XR_ITS ---
FINAL REPORT CLINICAL HISTORY: CVA rule out COMPARISON: None FINDINGS: The heart size is normal. The mediastinum is normal. There is no focal infiltrate or edema. There are no pleural effusions. There is no pneumothorax. There is no osseous abnormality. IMPRESSION: No acute cardiopulmonary process Reviewed, Interpreted and Dictated by Randy Sanchez MD Transcribed by Birgit Cardona Authenticated and [facility]
[2024-02-29 12:27] LABS: Basophils % 0.6 % (0.1-2.0); Eosinophils # 0.2 K/mm3 (0.0-0.4); Eosinophils % 2.8 % (0.1-12.0); Hematocrit 46.9 % (42.0-52.0); Lymphocytes # 1.5 K/mm3 (0.7-4.5); Lymphocytes % 25.8 % (10-50); Mean Corpuscular HGB Conc 31.8 g/dL (31.8-35.4); Mean Corpuscular Hemoglobin 29.7 pg (27.0-31.2); Mean Corpuscular Volume 93.1 fl (80-94); Mean Platelet Volume 8.4 fl (7.4-10.4); Monocytes # 0.3 K/mm3 (0.1-1.0); Monocytes % 5.7 % (1.7-9.3); Neutrophils # 3.8 K/mm3 (1.8-7.8); Neutrophils % 65.2 % (37.0-80.0); Platelet Count 121 K/mm3 (142-424); Red Blood Count 5.04 M/mm3 (4.60-6.20); Red Cell Distribution Width 14.9 % (11.5-17.5); White Blood Count 5.8 K/mm3 (4.8-10.8)
[2024-02-29 12:30] LABS: Albumin Level 4.3 g/dl (3.5-5.0); Chloride 113 mmol/L (98-107); Sodium 138 mmol/L (136-145)
[2024-02-29 12:31] LABS: Potassium 4.5 mmoL/L (3.5-5.1)
[2024-02-29 12:33] LABS: Alanine Aminotransferase 25 U/L (12-78); Albumin/Globulin Ratio 1.4 (1.1-1.8); Alkaline Phosphatase 64 U/L (38-126); Anion Gap 8.5 mEq/L (5-15); Aspartate Amino Transferase 34 U/L (17-59); Bilirubin,Total 0.8 mg/dl (0.2-1.3); Blood Urea Nitrogen 19 mg/dl (9-20); Calcium 8.8 mg/dl (8.4-10.2); Carbon Dioxide 21 mmol/L (22.0-30.0); Cholesterol 215 mg/dl (140-200); Creatinine Clearance Estimated 78 mL/min (50-200); Estimated Glomerular Filt Rate 67 ml/min (>60); GFR (African American) 81 ML/MIN (>60); Glucose 102 mg/dl (74-100); Total Protein,Serum 7.3 g/dl (6.3-8.2); Triglycerides 144 mg/dl (30-150); VLDL Cholesterol 29 mg/dL (0-40)
[2024-02-29 12:34] LABS: Chol/HDL Ratio 6.7 (1-3.5); Ethyl Alcohol < 10 mg/dl (0-10); HDL Cholesterol 32 mg/dl (40-60)
[2024-02-29 12:35] LABS: Activated Partial Thrombo Time 27.6 seconds (22.8-30.6); INR 0.99 (0.9-1.1); Prothrombin Time 11.1 seconds (10.1-12.5)
[2024-02-29] MEDS: IOPAMIDOL-370 (76%);100ML BOTTLE 80 ML IV (12:35)
[2024-02-29] MEDS: 0.9 % SODIUM CHLORIDE 50 ML VIAL IV (12:35)
[2024-02-29] MEDS: SODIUM CHLORIDE 0.9% 10ML SYR (RAD ONLY) 10 ML IV (12:35)
[2024-02-29 12:44] LABS: Direct LDL Cholesterol 131.73 mg/dL (100-129); NT Pro Brain Natriuretic Pep. 133 pg/mL (0-125)
[2024-02-29 12:50] LABS: Troponin I < 0.01 ng/ml (0.00-0.034)
[2024-02-29 12:53] LABS: T4 (Thyroxine) 8.5 ug/dl (5.53-11.0)
--- NOTE | 2024-02-29 13:00 | ED_ITS ---
Discharge Plan Disposition Patient Disposition: Admitted Chief Complaint: Altered Mental Status Prescriptions Prescriptions: No Action citalopram 10 mg tablet 10 mg PO DAILY losartan 50 mg tablet 50 mg PO BID Qty: 8 0RF atorvastatin 40 mg tablet 40 mg PO DAILY Qty: 4 0RF budesonide-formoterol [Symbicort] 160-4.5 mcg/actuation HFA aerosol inhaler 1 puff inhalation QID PRN (Reason: shortness of breath or wheezing) 90 Days Qty: 10.2 2RF lansoprazole 30 mg capsule,delayed release(DR/EC) 30 mg PO DAILY Qty: 30 Osteo Bi-Flex Triple Strength 750 mg-644 mg- 30 mg-1 mg tablet 1 tab PO BID Rx Instructions: give with meal/snack peg 3350-electrolytes [Golytely] 236-22.74-6.74 -5.86 gram recon soln 240 ml PO Q10M Qty: 4000 0RF Rx Instructions: until fecal effluent is clear carvedilol 6.25 mg tablet 6.25 mg PO BID Qty: 60 0RF furosemide [Lasix] 40 mg tablet 40 mg PO DAILY Qty: 90 3RF spironolactone 50 mg tablet See Rx Instructions .ROUTE .COMPLEX Qty: 90 3RF Dose Instruction: TAKE 1 TABLET EVERY DAY Rx Instructions: TAKE 1 TABLET EVERY DAY aspirin 325 MG tablet 325 mg PO DAILY Referrals Follow up/Referrals: Lissa Vidal MD [Primary Care Provider] - See instructions Clinical Impressions Clinical Impression: Generalized weakness Instructions Patient Instructions: DI for Altered Mental Status Print Language Print Language: Thai Discharge ED Provider: Hany Magaña General Adult HPI General Chief complaint: Altered Mental Status Stated complaint: Altered mental status Time Seen by Provider: 02/29/24 12:15 Mode of Arrival: Ambulatory Source of Information: Patient and Spouse Limitations: Altered Mental Status Description of Symptoms (Recalled from ER Triage Doc. by RN): altered mental status. last known well 2300 History of Present Illness HPI narrative: Please note that above description of symptoms, in this electronic medical record under categorization of recalled from ER triage doctor by RN are reflective of an initial nursing assessment, however, is not reflective of my full history and physical exam that was personally taken and clarified. Consequentially, this preceding description of symptoms, which may include the patient's categorized chief complaint in the EMR, do not reflect my personal clinical impression, and the ultimate description of history of present illness and patient stated complaints should be deferred to this section of the note. Unless stated otherwise or congruent with this section of the note, additional signs, symptoms, or incongruence should be interpreted as inaccurate with my clinical impression. Related Data Home Medications ?Medication ?Instructions ?Recorded ?Confirmed lansoprazole 30 mg capsule,delayed 30 mg PO DAILY #30 caps 01/18/19 02/29/24 release citalopram 10 mg tablet 10 mg PO DAILY 10/11/20 02/29/24 aspirin 325 mg tablet 325 mg PO DAILY 10/18/20 02/29/24 atorvastatin 40 mg tablet 40 mg PO DAILY 02/29/24 02/29/24 carvedilol 6.25 mg tablet 6.25 mg PO BID 02/29/24 02/29/24 losartan 50 mg tablet 50 mg PO BID 02/29/24 02/29/24 spironolactone 50 mg tablet 50 mg PO DAILY 02/29/24 02/29/24 Previous Rx's ?Medication ?Instructions ?Recorded furosemide 40 mg tablet (Lasix) 40 mg PO DAILY #90 tabs 12/20/23 Allergies Allergy/AdvReac Type Severity Reaction Status Date / Time oxytetracycline Allergy Intermediate Unknown Verified 02/29/24 13:58 allergy reaction [facility] Disclaimer: The information contained in this section may have been updated after the patient was seen, as this information can be updated by other users. Medical History Allergic rhinitis Asthma CAD (coronary artery disease) Chest pain Daytime somnolence STACI (obstructive sleep apnea) Snoring Surgical History History of arthroscopic knee surgery History of tonsillectomy Hx of cholecystectomy Family History Other Cancer Hyperlipidemia Hypertension Social History Smoking Status: Unknown if ever smoked alcohol intake: never substance use type: denies use current occupational status: employed Travel in the last 8 weeks: Inside the [place] household members: family housing: house ROS Obtained: Yes All systems reviewed & no additional complaints except as documented Physical Exam General General appearance: alert, in no apparent distress and other (Tired appearing) Head Head exam: atraumatic and normocephalic Eye Eye exam: Present normal appearance, PERRL and EOMI Neck Neck exam: Present normal inspection, full ROM and trachea midline Respiratory Respiratory exam: Present normal lung sounds bilaterally; Absent respiratory distress, wheezes, stridor, accessory muscle use or prolonged expiratory phase Cardiovascular Cardiovascular exam: Present regular rate, normal rhythm and other (Pulses equal symmetric in upper and lower extremities) Abdominal Exam Abdominal exam: Present soft; Absent distention, tenderness, guarding, rebound, rigidity or pulsatile mass Extremities Exam Extremities exam: Present normal inspection; Absent edema Neurological Exam Neurological exam: Present alert, oriented X3 and CN II-XII intact; Absent motor sensory deficit Skin Skin exam: Present warm and dry; Absent diaphoresis or erythema Medical Decision Making Medical Records Medical records reviewed: Yes I reviewed the patient's medical records. Screening: Per USPSTF and CDC recommendations, given the prevalence of disease in our region, it is our hospital?s policy to screen for HIV and viral Hepatitis for all patients aged 18 and over and those with ongoing risk factors. Philip Inquiry Pt receiving controlled substance: No Philip was queried for this patient: No Vital Signs: 02/29/24 12:08 02/29/24 12:24 02/29/24 12:31 Temperature 98.2 F Temperature Source Oral Pulse Rate 58 L 57 L Pulse Rate [Right] 59 L Respiratory Rate 16 Blood Pressure 161/91 H 159/81 H Blood Pressure [Right Arm] 148/104 H Blood Pressure Mean 114 118 Blood Pressure Mean [Right Arm] 118 02 Sat by Pulse Oximetry 99 98 98 Oxygen Delivery Method Room Air Room Air 02/29/24 13:00 02/29/24 13:30 02/29/24 14:00 Temperature Temperature Source Pulse Rate 55 L 51 L 54 L Pulse Rate [Right] Respiratory Rate Blood Pressure 151/100 H 150/89 H 153/90 H Blood Pressure [Right Arm] Blood Pressure Mean 122 109 119 Blood Pressure Mean [Right Arm] 02 Sat by Pulse Oximetry 98 96 97 Oxygen Delivery Method Room Air Room Air Room Air Lab Data Lab Results 02/29/24 12:11: WBC 5.8, RBC 5.04, Hgb 15.0, Hct 46.9, MCV 93.1, MCH 29.7, MCHC 31.8, RDW 14.9, Plt Count 121 L, MPV 8.4, Neut % (Auto) 65.2, Lymph % (Auto) 25.8, Sierra % (Auto) 5.7, Eos % (Auto) 2.8, Baso % (Auto) 0.6, Neut # (Auto) 3.8, Lymph # (Auto) 1.5, Sierra # (Auto) 0.3, Eos # (Auto) 0.2, Baso # (Auto) 0.0, PT 11.1, INR 0.99, APTT 27.6, Sodium 138, Potassium 4.5, Chloride 113 H, Carbon Dioxide 21 L, Anion Gap 8.5, BUN 19, Creatinine 1.10, Estimated Creat Clear 78, Estimated GFR 67, Est GFR ( Amer) 81, Glucose 102 H, Calcium 8.8, Total Bilirubin 0.8, AST 34, ALT 25, Alkaline Phosphatase 64, Troponin I < 0.01, N T-Pro-B Natriuret Pep 133 H, Total Protein 7.3, Albumin 4.3, Globulin 3.0, Albumin/Globulin Ratio 1.4, Triglycerides 144, Cholesterol 215 H, LDL Cholesterol Direct 131.73 H, VLDL Cholesterol 29, HDL Cholesterol 32 L, C holesterol/HDL Ratio 6.7 H, TSH 1.16, Thyroxine (T4) 8.5, Plasma/Serum Alcohol < 10, HIV 1&2 Antibody Rapid Nonreactive 02/29/24 12:21: VBG pH 7.36, VBG pCO2 38.5, VBG pO2 58.4 H, VBG HCO3 21.2 L, VBG Total CO2 22.3 L, VBG O2 Saturation 90.5 H, VBG Base Excess -4.3 L, VBG Lactic Acid 1.2 02/29/24 12:11 02/29/24 12:11 Orders (Tests/Meds): ED MEDICATIONS Generic Name Dose Route Start Last Admin Trade Name Freq PRN Reason Stop Dose Admin Lactated Ringer's 1,000 mls @ 999 mls/hr 02/29/24 13:55 Lactated Ringer's 1000 Ml Bag IV 02/29/24 14:55 .Q1H1M ONE Sodium Chloride 1,000 mls @ 100 mls/hr 02/29/24 14:15 Sod Chlor 0.9% 1000ml Bag IV 03/30/24 14:14 .Q10H NADJA Sodium Chloride 10 ml 02/29/24 12:19 Sodium Chloride 0.9% 10ml Flush Syringe IV 03/30/24 12:18 NEEDED PRN Maintain IV Site Discontinued Medications Generic Name Dose Route Start Last Admin Trade Name Flo PRN Reason Stop Dose Admin Iopamidol 80 ml 02/29/24 12:33 02/29/24 12:35 Iopamidol-370 (76%);100ml Bottle IV 02/29/24 12:34 80 ml ONCE ONE Administration Sodium Chloride 50 ml 02/29/24 12:33 02/29/24 12:35 0.9 % Sodium Chloride 50 Ml Vial IV 02/29/24 12:34 50 ml ONCE ONE Administration Sodium Chloride 10 ml 02/29/24 12:33 02/29/24 12:35 Sodium Chloride 0.9% 10ml Syr (Rad Only) IV 02/29/24 12:34 10 ml ONCE ONE Administration ORDERS Category Date Time Status CT angio head Stat Cat Scan 02/29/24 12:[address] angio neck Stat Cat Scan 02/29/24 12:[address] head/brain wo con Stat Cat Scan 02/29/24 12:19 Completed XR chest portable Stat Exams 02/29/24 12:20 Completed Activated Partial Thrombo Time Stat Lab 02/29/24 12:11 Completed Complete Blood Count Auto Diff Stat Lab 02/29/24 12:11 Completed Comprehensive Metabolic Panel Stat Lab 02/29/24 12:11 Completed Drug Screen,Urine Stat Lab 02/29/24 12:19 Ordered Ethyl Alcohol Stat Lab 02/29/24 12:11 Completed HIV (1&2) Antibody Rapid Stat Lab 02/29/24 12:11 Completed Hep C Ab with Reflex to RNA Stat Lab 02/29/24 12:11 Received Lipid Panel Stat Lab 02/29/24 12:11 Completed NT Pro Brain Natriuretic Pep. Stat Lab 02/29/24 12:11 Completed Prothrombin Time INR Stat Lab 02/29/24 12:11 Completed T4 (Thyroxine) Stat Lab 02/29/24 12:11 Completed TSH [Thyroid Stimulating Hormone] Stat Lab 02/29/24 12:11 Completed Troponin I Q3H Lab 02/29/24 15:30 Ordered Troponin I Q3H Lab 02/29/24 18:30 Ordered Troponin I Stat Lab 02/29/24 12:11 Completed Urinalysis and Microscopic Stat Lab 02/29/24 12:19 Ordered Venous Blood Gas Stat RT 02/29/24 12:21 Completed Medical Decision Narrative: 68-year-old male history of pretension and, CAD, PAD ending with neurolysed weakness. Per patient and family, patient has been feeling this way since yesterday, 02/27. Has been confused, short-term memory deficits of various capacities. states that patient has been generally weak, not unilaterally, patient verifies and corroborates this. States that he just feels disoriented, although he is oriented to person, place, time, situation. States that his head feels swimmy, and that he is lightheaded. No chest pain, shortness of breath, nausea or vomiting, but he has had chronic diarrhea since November, for which he is following up with GI and has upper and lower scope scheduled a couple months from now. No fevers or chills, night sweats, blood in his stool, chest pain, shortness of breath, or any other concerns. No recent travel. Denies chronic alcohol or tobacco use.. History was obtained via conversation with patient and . On arrival, patient hemodynamically stable, alert, oriented x4, appropriate, GCS 15, moving all extremities spontaneously, pupils equal and reactive to light. Full physical exam performed and significant for tired appearing male who is in no acute distress. Subjectively pale, per , does not appear considerably pale to me. No scleral icterus. Cardiopulmonary exam within normal limits without murmurs gallops rubs, nontachycardic. Pulses equal and symmetric in upper and lower extremities. Neurovascular intact including cranial nerve, cerebellar, motor and sensory exams. Abdomen soft, nontender, nondistended. Lungs are clear to auscultation anterior and posteriorly bilaterally. Differential includes thyroid abnormality, endocrinologic abnormality, metabolic abnormality, ACS, NC, sepsis, among others. Patient placed on continuous cardiac monitoring and continuous pulse ox with initial blood pressure 148/104, heart rate 59, saturation 99% on room air. Independent interpretation of EKG shows sinus rhythm 62 beats a minute without ST or T wave changes concerning for acute ischemia. IL 162, QRS 91, QTc 386 with normal axis. Patient was given fluid bolus for symptomatic management and correction of underlying abnormalities. Workup independently interpreted and significant for nonactionable hematologic labs with no focal findings. On independent interpretation of imaging, no acute intracranial hemorrhage or abnormality of the vessels on CTA head or neck see radiology read for full review of final results. On open great reason patient is feeling weak, but given no improvement after fluid bolus, conversation was had with patient and regarding home-going versus staying. I called patient's primary care provider who opted for admission, observation, fluids, prior to discharge home. I feel this is appropriate. Patient still without focal deficits on reevaluation, so to be admitted for generalized weakness. Because patient high risk for clinical decompensation, deemed appropriate for inpatient admission. Results were relayed to patient who voiced understanding and patient was agreeable to inpatient admission and management. Patient was admitted to the hospital for further definitive management. It Application Administrator disclaimer Much of this encounter note is an electronic cut plug packer spoken language to printed text. Electronic cut plug packer of the spoken language may permit errors. Although I have reviewed the note, some errors may still exist. Critical Care Critical Care Time Critical Care Time: No
[2024-02-29 13:06] LABS: Thyroid Stimulating Hormone 1.16 uIU/mL (0.465-4.68)
[2024-02-29 13:10] LABS: HIV (1&2) Antibody Rapid NONREACTIVE (NONREACTIVE)
[2024-02-29 13:15] LABS: Lactate Venous 1.2 mmol/L (0.4-2.0); VBG Base Excess -4.3 mmol/L (-2.4-2.3); VBG HCO3 21.2 mmol/L (23-30); VBG Oxygen Saturation 90.5 % (50-70); VBG PCO2 38.5 mmol/L (35-51); VBG PH 7.36 mmol/L (7.31-7.41); VBG PO2 58.4 mmol/L (28-40); VBG Total CO2 22.3 mmol/L (23-27)
--- NOTE | 2024-02-29 14:11 | HMH.PHAINT1 ---
Pharmacy Intervention Comments: MEDICATION RECONCILIATION COMPLETED ON PATIENT USING EXTERNAL FILL HISTORY FROM PHARMACY AND LIST FROM CARDIOLOGY OFFICE. -SIMONE ROE, RICKD
[2024-02-29] MEDS: LACTATED RINGERS 1000ML 1,000 ML 999 ML IV (14:20)
[2024-02-29 14:23] LABS: Microscopic, Urine URINE MICROSCOPIC (MICROSCOPIC)
[2024-02-29 14:25] LABS: Appearance,Urine CLEAR (Clear); Bilirubin,Urine Negative (Negative); Blood, Urine Negative (Negative); Color,Urine YELLOW (Yellow); Glucose,Urine (UA) Negative (Negative); Ketones,Urine Negative (Negative); Leukocyte Esterase,Urine Negative (Negative); Nitrate,Urine Negative (Negative); Protein,Urine Negative (Negative); Urobilinogen,Urine 0.2 EU/dl (0.2)
[2024-02-29 14:39] LABS: Bacteria,Urine Trace /lpf; Squamous Epithelial Cell,Urine Occasional #/hpf (0-5)
[2024-02-29 14:45] LABS: Amphetamine/Metha Screen,Urine Negative ng/ml (<1000)
[2024-02-29 14:46] LABS: Barbiturates Screen,Urine Negative ng/ml (<200); Benzodiazepines Screen,Urine Negative ng/ml (<200)
[2024-02-29 14:47] LABS: Cannabinoid Screen,Urine Negative ng/ml (<50)
[2024-02-29 14:48] LABS: Cocaine Screen,Urine Negative ng/ml (<300); Methadone Screen,Urine Negative ng/ml (<300)
[2024-02-29 14:49] LABS: Opiate Screen,Urine Positive ng/ml (<300)
[2024-02-29 14:50] LABS: Phencyclidine Screen,Urine Negative ng/ml (<25)
[2024-03-01 08:21] LABS: HCV Ab Non Reactive (Non Reactive)
== END 2024-02-29 16:00 | disposition home or self-care (01) ==
PROVIDERS: Emergency Provider Emergency Medicine; PCP Family Medicine
DX: R53.1 Weakness (principal); R41.82 Altered mental status, unspecified; I10 Essential (primary) hypertension
CPT/HCPCS: 70450; 70496; 70498; 71045; 80053; 80061; 80307; 80320; 81001; 82803; 83880; 84436; 84443; 84484; 85025; 85610; 85730; 86803; 87389; 93005; 96360; 96361; 99285; G0480; J7120; Q9967

== ENCOUNTER 2024-04-17 11:26 | Day surgery (SDC) | payer MEDICARE, SELFPAY ==
[2024-04-12 14:22] VITALS: BMI 30.7
[2024-04-17 11:47] VITALS: BP 130/75; PULSE 76; RESP 16; TEMP 36.1; O2SAT 99
--- NOTE | 2024-04-17 12:20 | P.PNANES_ITS ---
[facility] Disclaimer: The information contained in this section may have been updated after the patient was seen, as this information can be updated by other users. Medical History Allergic rhinitis Asthma CAD (coronary artery disease) STACI (obstructive sleep apnea) Daytime somnolence Snoring Chest pain Surgical History History of tonsillectomy Hx of cholecystectomy History of arthroscopic knee surgery Family History Other Cancer Hyperlipidemia Hypertension Social History (Updated 04/12/24 @ 14:20 by Sunshine Hammonds RN) Smoking Status: Unknown if ever smoked alcohol intake: never substance use type: denies use current occupational status: employed Travel in the last 8 weeks: None household members: family housing: house [facility] Anesthesia Checklist Patient Identification Patient Identification: Arm Band, Family and Verbal (Name & ) Structural Data Admitted From: Home Planned Operative Procedure/s: EGD/Colonoscopy Consent for Planned Operative Procedure(s) Verified: Yes Verified Documents: Surgical Consent and History and Physical NPO Status Verified Time NPO: 08:30 Chart Verification Results Verified: CBC, BMP, ECG and Chest Xray Additional verifications Patient : No Anesthesia Reactions: No Cardiovascular Assessment Heart Sounds: S1 & S2 Pulse Rhythm: Irregular Peripheral Edema: No Airway Assessment Mallampati Score:: Class II C-Spine Mobility Assessed: Yes (FROM demonstrated) TMJ Mobility Assessed: Yes Dentition: Good Dentition (Nothing loose per pt.) Neurological Assessment Level of Consciousness: Awake, Alert, Appropriate and Follows Commands Hx Seizures: No Numbness or tingling in extremities: No Anesthesia Plan Anesthesia Risk discussed: Yes Anesthesia Plan: Verified ASA Class: III Anesthesia Type: MAC
--- NOTE | 2024-04-17 12:55 | P.HP_ITS ---
History of Present Illness *Admission Date: 04/17/24 *Reason for visit:: Diagnostic colonoscopy *History of present illness: Mr. Randall is a 68-year-old gentleman who is here for diagnostic colonoscopy secondary to a change in bowel habits with recent diarrhea and right lower quadrant abdominal pain. He also gets some gassiness and bloating. His last colonoscopy was 12 years ago.. The examination is deemed medically necessary for colonoscopy. The patient has been seen, interviewed and examined prior to the procedure by both myself and the anesthesia provider. [facility] Disclaimer: The information contained in this section may have been updated after the patient was seen, as this information can be updated by other users. Medical History Allergic rhinitis Asthma CAD (coronary artery disease) STACI (obstructive sleep apnea) Daytime somnolence Snoring Chest pain Surgical History History of tonsillectomy Hx of cholecystectomy History of arthroscopic knee surgery Family History Other Cancer Hyperlipidemia Hypertension Social History Smoking Status: Unknown if ever smoked alcohol intake: never substance use type: denies use current occupational status: employed Travel in the last 8 weeks: None household members: family housing: house Other Medical History Have you received the Flu Vaccine for this season: Yes Have you received the Pneumonia Vaccine: No Review of Systems Review of Systems Review of systems (narrative): Negative *Cardiovascular Comments: Negative *Gastrointestinal Comments: Negative *Genitourinary Comments: Negative *Musculoskeletal Comments: Negative *Neurologic Comments: Negative Meds Home Medications and Allergies Home Medications ?Medication ?Instructions ?Recorded ?Confirmed ?Type citalopram 10 mg tablet (Celexa) 10 mg PO DAILY 10/11/20 04/17/24 History carvedilol 6.25 mg tablet 6.25 mg PO BID 02/29/24 04/17/24 History losartan 50 mg tablet 50 mg PO BID 02/29/24 04/17/24 History aspirin 81 mg tablet,delayed 81 mg PO DAILY 03/15/24 04/17/24 History release (Adult Low Dose Aspirin) atorvastatin 40 mg tablet 40 mg PO DAILY PRN (Drug) Ingestion 03/15/24 04/17/24 History sodium,potassium,mag sulfates 17.5 See Rx Instructions PO .COMPLEX 04/07/24 Rx gram-3.13 gram-1.6 gram oral soln #354 mL (Suprep Bowel Prep Kit) New Prescriptions to Start Prescriptions: Allergies Allergy/AdvReac Type Severity Reaction Status Date / Time oxytetracycline Allergy Intermediate Unknown Verified 04/17/24 11:45 allergy reaction cephalexin [From Keflex] Allergy Rash Verified 04/17/24 12:24 Penicillins Allergy Rash Verified 04/17/24 12:24 Exam Data for Last 24 hours Vital signs and Labs for Last 24 Hours: Temp Pulse Resp BP Pulse Ox O2 Del Method 97.0 F L 76 16 130/75 99 Room Air 04/17/24 11:47 04/17/24 11:47 04/17/24 11:47 04/17/24 11:47 04/17/24 11:47 04/17/24 11:47 *Routine HEENT Exam Head: Present normocephalic Eye: Present EOMI and PERRL ENT: Present mucous membranes moist *Routine Neck Exam Neck: Present supple *Routine Respiratory Exam Respiratory: Present CTA bilaterally *Routine Cardiovascular Exam Cardiovascular: Present RRR *Routine Abdominal Exam Abdominal: Present soft and normoactive bowel sounds; Absent tenderness *Routine Rectal Exam Rectal:: deferred *Routine Genitalia Exam Genitalia:: deferred *Routine Extremities Exam Extremities: Absent cyanosis, clubbing or edema *Routine Skin Exam Skin: Present warm; Absent rash *Routine Neurological Exam Neurological: Present alert and oriented X3 Assessment and Plan *Assessment and plan (1) Change in bowel habits: Status: Acute Category: Medical Code(s): R19.4 - Change in bowel habit (2) Diarrhea: Status: Acute Category: Medical Code(s): R19.7 - Diarrhea, unspecified (3) Right lower quadrant pain: Status: Acute Category: Medical Code(s): R10.31 - Right lower quadrant pain (4) Bloating: Status: Acute Category: Medical Code(s): R14.0 - Abdominal distension (gaseous) Plan A/P: 1. Diarrhea/bloating/right lower quadrant abdominal pain is the preprocedural diagnosis. The patient will be anesthetized/sedated using MAC sedation. The patient has been seen and examined. Cardiac and lung assessment prior to the examination is stable. Proceed with planned colonoscopy
--- NOTE | 2024-04-17 13:10 | [facility].PROCNOTE ---
[facility] Procedure Note Date: 04/17/24 Time: 13:24 Procedure Note:: Colonoscopy Procedure Report: Colonoscopy with cold snare polypectomy, cold biopsies and hemorrhoid band ligation Endoscopist: Aime Rothman II, MD Referring physician: Fab Vidal MD Date of Procedure: April 17, 2024 Equipment: Olympus 190 variable stiffness pediatric colonoscope Sedation: MAC sedation Indication: Mr. Randall is a 68-year-old gentleman who reports intermittent diarrhea with crampy abdominal discomfort, bloating and gassiness. He was also seen some blood after completion of the bowel movement. He reported soft stools and sometimes regular bowel function. He is more regular now. He reports some right lower quadrant abdominal discomfort. His last colonoscopy was 12 years ago. He reports no weight loss or family history of colon cancer. His father had intestinal cancer. He did stop taking lansoprazole and added a probiotic. He has had resolution of most of his diarrhea. As long as he does not drink dairy, he does not get the bleeding. Procedure: Prior to the procedure, a history and physical exam was performed, and patient's medications and allergies were reviewed. The risks, benefits and alternatives of the sedation and procedure were discussed with the patient. All questions were answered and informed consent was obtained. The patient was brought to the procedure room. Patient identification and proposed procedure were verified by the physician and the nurse. The patient was placed in a left lateral decubitus position and the scope was passed under direct vision. Throughout the procedure, the patient's blood pressure, pulse, and oxygen saturations were monitored continuously. The colonoscopy was accomplished without difficulty. The patient tolerated the procedure well. Findings: On digital rectal examination there was normal rectal tone. There were no external hemorrhoids. The prostate was 2+, smooth, soft symmetric without nodules. The colonoscope was introduced through the anal canal to the rectum and advanced to the cecum. The ileocecal valve and appendiceal orifice were identified. The scope was advanced a short distance into the ileum which appeared grossly normal. The scope was then withdrawn into the colon. Random cold biopsies were taken from the right colon to rule out microscopic colitis. There were 2 polyps (cecum x 1 (4 mm) and descending x 1 (3 mm)) which were both removed via cold snare polypectomy. The remaining cecum, ascending, transverse, descending, sigmoid and rectum were grossly normal. There were no other mucosal abnormalities identified. Upon retroflexion within the rectum there were grade 2-3 internal hemorrhoids.3 columns of hemorrhoids were banded using 3 bands with excellent ligation effect. The preparation was excellent throughout with [place] Preparation Score of 9. The cecal time was 13 minutes. Impression: 1. Diminutive colonic polyps x 2 2. Grade 2-3 internal hemorrhoids status post band ligation x 3 Plan: I would encourage psyllium bulking fiber supplementation on a long-term daily maintenance basis. I will follow-up the polyp histology and if the polyps are adenomatous, I would recommend repeat surveillance colonoscopy again in 7 years.
[2024-04-17 13:11] VITALS: O2SAT 98
[2024-04-17 13:35] VITALS: BP 94/59; PULSE 63; RESP 14; TEMP 36.1; O2SAT 92
[2024-04-17 13:45] VITALS: BP 106/64; PULSE 67; RESP 16; O2SAT 94
[2024-04-17 13:55] VITALS: BP 125/78; PULSE 58; RESP 16; O2SAT 95
[2024-04-17 14:05] VITALS: BP 136/82; PULSE 61; RESP 17; O2SAT 98
== END 2024-04-17 14:23 | disposition home or self-care (01) ==
PROVIDERS: PCP Family Medicine; Visit Provider Internal Medicine Gastroenterology
PROC: 0DJD8ZZ Inspection of Lower Intestinal Tract, Via Natural or Artificial Opening Endoscopic (ICD-10-PCS; CPT 45378; principal; 2024-04-17 13:00)
DX: D12.4 Benign neoplasm of descending colon (principal); D12.0 Benign neoplasm of cecum; K64.2 Third degree hemorrhoids; R19.4 Change in bowel habit; R19.7 Diarrhea, unspecified; R10.31 Right lower quadrant pain; R14.0 Abdominal distension (gaseous)
CPT/HCPCS: 45380; 45385; 45398; 88305; C1889